=== PATIENT | female | born 2000 | race Caucasian/White ===

== ENCOUNTER 2024-02-29 10:56 | Emergency (ER) | payer OTHER ==
[~2024-02-29] VITALS: Ht 167.6 cm; Wt 65.0 kg
[2024-02-29 10:58] VITALS: BP 129/85; PULSE 84; RESP 18; TEMP 98.8; O2SAT 100
[2024-02-29] MEDS ORDERED: P50 MT (11:27)
[2024-02-29] MEDS ORDERED: HYPR15DR23 BOTHEYE (11:27)
[2024-02-29] MEDS ORDERED: ACYC200C31 MT (11:27)
[2024-02-29] MEDS: ACYCLOVIR 400 MG TABLET PO ONE (11:36)
[2024-02-29] MEDS: PREDNISONE 20MG TABLET PO ONE (11:36)
== END 2024-02-29 11:41 | disposition home or self-care (01) ==
LOC: ER 10:56
DX: G51.0 Bell's palsy (principal)
CPT/HCPCS: 99283; J7512